=== PATIENT | female | born 1940 | race Two or more races ===

== ENCOUNTER 2018-11-17 11:07 | Emergency (ER) | payer OTHER ==
[~2018-11-17] VITALS: Ht 152.4 cm; Wt 78.9 kg
[2018-11-17 12:23] VITALS: BP 102/49
== END 2018-11-17 11:20 | disposition left against medical advice (07) ==
LOC: ER 11:09
DX: R42 Dizziness and giddiness (principal); R51 Headache; E11.9 Type 2 diabetes mellitus without complications; I10 Essential (primary) hypertension; W18.09XA Striking against other object with subsequent fall, initial encounter; Y93.89 Activity, other specified; Y92.89 Other specified places as the place of occurrence of the external cause; Y99.8 Other external cause status
CPT/HCPCS: 70450; 93005